=== PATIENT | female | born 1940 | race Caucasian/White ===

== ENCOUNTER 2025-01-09 08:27 | Inpatient (IN) | payer MEDICARE, OTHER ==
[~2025-01-09] VITALS: Ht 165.1 cm; Wt 77.1 kg
[2025-01-09] MEDS ORDERED: MECLIZINE HCL 25 MG TABLET ONE (09:21)
[2025-01-09] MEDS ORDERED: ACETAMINOPHEN ES 500 MG TABLET ONE ×2 (09:21→09:54)
[2025-01-09 09:24] LABS: BASOPHILS % (AUTO) 0.8 % (0.0-2.0); EOSINOPHILS # (AUTO) 0.1 K/uL (0.0-0.7); EOSINOPHILS % (AUTO) 1.6 % (0.0-6.0); HEMATOCRIT 35 % (33-45); HEMOGLOBIN 12.1 g/dL (11.5-14.8); LYMPHOCYTES # (AUTO) 1.2 K/uL (0.8-4.8); LYMPHOCYTES % (AUTO) 21.9 % (20.0-44.0); MEAN CORPUSCULAR HEMOGLOBIN 32 PG (26.0-33.0); MEAN CORPUSCULAR HGB CONC 34 g/dl (31.0-36.0); MEAN CORPUSCULAR VOLUME 94 fL (82-100); MONOCYTES # (AUTO) 0.4 K/uL (0.1-1.30); MONOCYTES % (AUTO) 7.7 % (2.0-12.0); NEUTROPHILS # (AUTO) 3.7 K/uL (1.8-8.9); PLATELET COUNT (AUTO) 184 K/uL (150-450); RED BLOOD CELL COUNT(AUTO) 3.77 MIL/uL (4.0-5.2); WHITE BLOOD COUNT (AUTO) 5.4 K/uL (4.3-11.0)
[2025-01-09 09:31] LABS: CALCIUM, SERUM 9.2 mg/dL (8.5-10.1); CARBON DIOXIDE 29 mmol/L (21-32); CHLORIDE 105 mmol/L (98-107); CREATININE 1.3 mg/dL (0.6-1.3); GLUCOSE 187 mg/dL (74-106); POTASSIUM 3.5 mmol/L (3.5-5.1); SODIUM SERUM 142 mmol/L (136-145); UREA NITROGEN, BLOOD 20 mg/dL (7-18)
[2025-01-09 09:37] LABS: ALANINE AMINOTRANSFERASE 17 U/L (12-78); ALBUMIN 3.8 g/dL (3.4-5.0); ALKALINE PHOSPHATASE 72 U/L (46-116); ASPARTATE AMINOTRANSFERASE 16 U/L (15-37); BILIRUBIN,DIRECT 0.2 mg/dL (0.0-0.2); BILIRUBIN,TOTAL 0.7 mg/dL (0.2-1.0); TOTAL PROTEIN, SERUM 7.6 g/dL (6.4-8.2)
[2025-01-09 09:38] LABS: INR 1.23 (0.91-1.10); PARTIAL THROMBOPLASTIN TIME 30.8 SEC (24.3-34.3); PROTHROMBIN TIME 12.6 SECS (9.2-11.1)
[2025-01-09] MEDS: MECLIZINE HCL 12.5 MG TABLET PO ONE (10:04)
[2025-01-09] MEDS: ACETAMINOPHEN ES 500 MG TABLET PO ONE (10:04)
[2025-01-09] MEDS ORDERED: MECL-159 PO ×2 (10:56→15:31)
[2025-01-09 15:26] VITALS: BP 124/80; TEMP 98.2; O2SAT 98
[2025-01-09] MEDS ORDERED: ONDANSETRON HCL/PF 4 MG/2 ML VIAL IVP PRN (15:30)
[2025-01-09] MEDS ORDERED: MAGNESIUM HYDROXIDE 30 ML UDC PO PRN (15:30)
[2025-01-09] MEDS ORDERED: Z GUARD REMEDY 4 OZ OINT TP PRN (15:30)
[2025-01-09] MEDS ORDERED: MAG HYDROX/AL HYDROX/SIMETH 30 ML UDC PO PRN (15:30)
[2025-01-09] MEDS ORDERED: ZOLPIDEM TARTRATE 5 MG TABLET PO PRN (15:30)
[2025-01-09] MEDS ORDERED: GLIM4TAB37 PO (15:31)
[2025-01-09] MEDS ORDERED: HYDR-4076 PO (15:31)
[2025-01-09] MEDS ORDERED: SITA100T PO (15:31)
[2025-01-09] MEDS ORDERED: DILT-32 PO (15:31)
[2025-01-09] MEDS: ACETAMINOPHEN 325 MG TABLET PO PRN (15:46)
[2025-01-09 16:00] VITALS: BP 160/57; TEMP 97.5; O2SAT 97
[2025-01-09] MEDS: IV NS 0.9% 1,000 ML IV PRN (16:31)
[2025-01-09 17:47] VITALS: BP 160/77; TEMP 98.3; O2SAT 96
[2025-01-09 17:48] VITALS: BP_SYST 137; BP_SYST 153; BP_SYST 160; BP_DIAS 61; BP_DIAS 72; BP_DIAS 77; TEMP 98.3; O2SAT 96
[2025-01-09] MEDS ORDERED: hydrALAZINE HCL 25 MG TABLET PO PRN (18:00)
[2025-01-09] MEDS ORDERED: MECLIZINE HCL 25 MG TABLET PO PRN (18:00)
[2025-01-09] MEDS: DILTIAZEM HCL CD 120 MG PO SCH (18:27)
[2025-01-09] MEDS: GLIMEPIRIDE 4 MG TABLET PO SCH (18:35)
[2025-01-09 20:00] VITALS: BP 150/68; TEMP 98.2; O2SAT 95
[2025-01-10] VITALS (7 sets, daily range): BP systolic 112–171; BP diastolic 59–85; TEMP 97.3–98.2; O2SAT 95–98
[2025-01-10 07:00] LABS: BASOPHILS % (AUTO) 0.5 % (0.0-2.0); EOSINOPHILS # (AUTO) 0.1 K/uL (0.0-0.7); HEMATOCRIT 30 % (33-45); HEMOGLOBIN 10.8 g/dL (11.5-14.8); MEAN CORPUSCULAR HEMOGLOBIN 33 PG (26.0-33.0); MEAN CORPUSCULAR HGB CONC 36 g/dl (31.0-36.0); MEAN CORPUSCULAR VOLUME 93 fL (82-100); MONOCYTES # (AUTO) 0.6 K/uL (0.1-1.30); MONOCYTES % (AUTO) 9.5 % (2.0-12.0); PLATELET COUNT (AUTO) 161 K/uL (150-450); RED BLOOD CELL COUNT(AUTO) 3.25 MIL/uL (4.0-5.2); RED CELL DISTRIBUTION WIDTH 13.7 % (11.5-15.0); WHITE BLOOD COUNT (AUTO) 6.8 K/uL (4.3-11.0)
[2025-01-10 07:02] LABS: CALCIUM, SERUM 8.9 mg/dL (8.5-10.1); MAGNESIUM 1.8 mg/dL (1.8-2.4); POTASSIUM 3.5 mmol/L (3.5-5.1)
[2025-01-10] MEDS: LINAGLIPTIN 5 MG TABLET PO SCH (08:03)
[2025-01-10 10:34] LABS: THYROID STIMULATING HORMONE 5.98 uIU/mL (0.358-3.74)
[2025-01-10] MEDS: MECLIZINE HCL 25 MG TABLET PO PRN (15:11)
[2025-01-10] MEDS ORDERED: DEXTROSE 50%-WATER 50 ML DISP.SYRIN IV PRN (20:00)
[2025-01-10 21:12] LABS: THYROID STIMULATING HORMONE 3.79 uIU/mL (0.358-3.74)
[2025-01-10] MEDS: BLOOD SUGAR DIAGNOSTIC 1 EACH STRIP VI SCH (21:56)
[2025-01-10] MEDS: *INSULIN REGULAR(HUMULIN R)HUM 100 UNIT/ML VIAL SQ PRN (21:57)
[2025-01-11] VITALS: BP 144/66; TEMP 98.2; O2SAT 95
[2025-01-11 02:03] VITALS: BP 144/66; TEMP 98.2; O2SAT 95
[2025-01-11 02:06] VITALS: BP_SYST 115; BP_SYST 144; BP_SYST 95; BP_DIAS 66; BP_DIAS 76; BP_DIAS 77; TEMP 98.2; O2SAT 95
[2025-01-11 04:00] VITALS: BP 159/72; TEMP 98.1; O2SAT 96
[2025-01-11 06:25] VITALS: BP 159/72; TEMP 98.1; O2SAT 96
[2025-01-11] MEDS: INSULIN REGULAR, HUMAN 100 UNIT/ML 3 ML VIAL SQ PRN (06:35)
[2025-01-11] MEDS: DILTIAZEM HCL CD 120 MG PO SCH (08:23)
[2025-01-11] MEDS: VALSARTAN 80 MG TABLET PO SCH (08:29)
[2025-01-11 13:03] LABS: BASOPHILS % (AUTO) 0.6 % (0.0-2.0); EOSINOPHILS # (AUTO) 0.1 K/uL (0.0-0.7); HEMATOCRIT 36 % (33-45); HEMOGLOBIN 12.3 g/dL (11.5-14.8); LYMPHOCYTES # (AUTO) 2.1 K/uL (0.8-4.8); LYMPHOCYTES % (AUTO) 29.8 % (20.0-44.0); MEAN CORPUSCULAR HEMOGLOBIN 32 PG (26.0-33.0); MEAN CORPUSCULAR HGB CONC 34 g/dl (31.0-36.0); MEAN CORPUSCULAR VOLUME 95 fL (82-100); MONOCYTES # (AUTO) 0.6 K/uL (0.1-1.30); MONOCYTES % (AUTO) 9.1 % (2.0-12.0); NEUTROPHILS # (AUTO) 4.1 K/uL (1.8-8.9); NEUTROPHILS % (AUTO) 58.5 % (43.0-81.0); PLATELET COUNT (AUTO) 216 K/uL (150-450); RED BLOOD CELL COUNT(AUTO) 3.84 MIL/uL (4.0-5.2); RED CELL DISTRIBUTION WIDTH 14.3 % (11.5-15.0)
[2025-01-11 13:20] LABS: CALCIUM, SERUM 9.6 mg/dL (8.5-10.1); CREATININE 1.1 mg/dL (0.6-1.3); POTASSIUM 3.5 mmol/L (3.5-5.1)
[2025-01-11] MEDS: hydrALAZINE HCL 25 MG TABLET PO PRN (17:13)
[2025-01-11 20:00] VITALS: BP 155/60; TEMP 98.1; O2SAT 96; O2SAT 97
[2025-01-12 05:10] LABS: FOLIC ACID 8.4 ng/mL (>3.0)
[2025-01-12 06:43] LABS: BASOPHILS % (AUTO) 0.5 % (0.0-2.0); EOSINOPHILS # (AUTO) 0.2 K/uL (0.0-0.7); HEMATOCRIT 36 % (33-45); HEMOGLOBIN 12.1 g/dL (11.5-14.8); LYMPHOCYTES % (AUTO) 30.3 % (20.0-44.0); MEAN CORPUSCULAR HEMOGLOBIN 32 PG (26.0-33.0); MEAN CORPUSCULAR HGB CONC 34 g/dl (31.0-36.0); MEAN CORPUSCULAR VOLUME 94 fL (82-100); MONOCYTES # (AUTO) 0.7 K/uL (0.1-1.30); MONOCYTES % (AUTO) 11.1 % (2.0-12.0); NEUTROPHILS # (AUTO) 3.7 K/uL (1.8-8.9); NEUTROPHILS % (AUTO) 55.1 % (43.0-81.0); PLATELET COUNT (AUTO) 185 K/uL (150-450); RED BLOOD CELL COUNT(AUTO) 3.79 MIL/uL (4.0-5.2); RED CELL DISTRIBUTION WIDTH 14.1 % (11.5-15.0); WHITE BLOOD COUNT (AUTO) 6.7 K/uL (4.3-11.0)
[2025-01-12 07:00] VITALS: BP 151/77; TEMP 97.2; O2SAT 94
[2025-01-12 09:23] VITALS: BP_SYST 111; BP_SYST 128; BP_SYST 130; BP_DIAS 62; BP_DIAS 63; BP_DIAS 69; O2SAT 93
[2025-01-12] MEDS ORDERED: VALS160T29 PO (13:05)
[2025-01-12] MEDS ORDERED: GLIM4TAB PO (13:05)
[2025-01-12] MEDS ORDERED: MECL-159 PO (13:05)
[2025-01-12] MEDS ORDERED: HYDR-4076 PO (13:05)
[2025-01-12] MEDS ORDERED: DILT120C87 PO (13:05)
== END 2025-01-12 13:17 | disposition home health service (06) | DRG 305 ==
LOC: ER 08:38 → TELE 12:32 → MED 01-11 13:03
PROVIDERS: ADMIT Internal Medicine; ATTEND Nurse Practitioner Acute Care
DX: I16.0 Hypertensive urgency (principal); E86.0 Dehydration; H81.10 Benign paroxysmal vertigo, unspecified ear; I10 Essential (primary) hypertension; E11.9 Type 2 diabetes mellitus without complications; Z91.011 Allergy to milk products; Z79.899 Other long term (current) drug therapy; Z79.84 Long term (current) use of oral hypoglycemic drugs; E03.8 Other specified hypothyroidism; E78.5 Hyperlipidemia, unspecified; F41.9 Anxiety disorder, unspecified; R79.89 Other specified abnormal findings of blood chemistry
CPT/HCPCS: 36415; 70450-TC; 71045-TC; 80048-TC; 80076-TC; 82607-TC; 82728-TC; 82962-TC; 83540-TC; 83735-TC; 83921; 84100-TC; 84425; 84439-TC; 84443-TC; 85025-TC; 85730-TC; 93307-TC; 97110-TC; 97116-TC; 97530-TC; A4223; G0378; J1815; J7030; J8597